=== PATIENT | female | born 1985 | race Caucasian/White ===

== ENCOUNTER → 2019-04-29 | Outpatient (CLI) | payer OTHER ==
[~2019-04-29] VITALS: Ht 168.9 cm; Wt 115.7 kg
[~2019-04-29] MED LIST: ATARAX 25MG25 MG/TAB PO
[2019-04-29 13:35] VITALS: BP 126/60; PULSE 64
== END ==
LOC: LIGHT 13:03
DX: Z68.41 Body mass index [BMI] 40.0-44.9, adult (principal); Z98.84 Bariatric surgery status
CPT/HCPCS: G0463